=== PATIENT | female | born 1965 | race Caucasian/White ===

== ENCOUNTER → 2018-02-23 | Outpatient (CLI) | payer OTHER ==
[~2018-02-23] MED LIST: MULT-950 PO; SIMV10TA6 PO
== END | disposition home or self-care (01) ==
LOC: RAH 07:40
PROVIDERS: ATTEND Family Medicine
DX: K76.0 Fatty (change of) liver, not elsewhere classified (principal)
CPT/HCPCS: 76700

== ENCOUNTER → 2019-07-08 | Outpatient (CLI) | payer OTHER ==
[~2019-07-08] MED LIST changes: -SIMV10TA6 PO; +SIMV10TA97 PO
== END | disposition home or self-care (01) ==
LOC: RAH 08:19
PROVIDERS: ATTEND Obstetrics & Gynecology
DX: Z12.31 Encounter for screening mammogram for malignant neoplasm of breast (principal)
CPT/HCPCS: 77067

== ENCOUNTER 2019-10-18 05:57 | Day surgery (SDC) | payer OTHER ==
[~2019-10-18] VITALS: Ht 154.9 cm; Wt 87.3 kg
[~2019-10-18 05:57] MED LIST changes: +SODIUM CHLORIDE 0.9% 1000ML 1,000 ML IV ONE
[2019-10-18 07:10] VITALS: BP 117/85
[2019-10-18] MEDS ORDERED: PROPOFOL 10 MG/ML 20ML VIAL IV ONE (07:48)
[2019-10-18 08:12] VITALS: BP 127/90
[2019-10-18 08:17] VITALS: BP 124/78
[2019-10-18 08:22] VITALS: BP 122/73
== END 2019-10-18 08:35 | disposition home or self-care (01) ==
LOC: ENDO 05:57 → DAH 05:57 → ENDO 08:35
PROVIDERS: ATTEND Internal Medicine
DX: R19.5 Other fecal abnormalities (principal); D12.7 Benign neoplasm of rectosigmoid junction; K57.30 Diverticulosis of large intestine without perforation or abscess without bleeding; E66.9 Obesity, unspecified; M19.90 Unspecified osteoarthritis, unspecified site; E78.5 Hyperlipidemia, unspecified; Z80.0 Family history of malignant neoplasm of digestive organs; Z90.89 Acquired absence of other organs; Z90.710 Acquired absence of both cervix and uterus; Z68.36 Body mass index [BMI] 36.0-36.9, adult
CPT/HCPCS: 45385; 88305; A4215; A4221; A4222; A4223; A4606; A4615; A4663; J2704; J7030